=== PATIENT | female | born 1960 | race Caucasian/White ===

== ENCOUNTER 2024-02-01 11:24 | Emergency (ER) | payer SELFPAY ==
[~2024-02-01] VITALS: Ht 154.9 cm; Wt 66.9 kg
[2024-02-01 11:32] VITALS: BP 12/86; PULSE 75; RESP 18; O2SAT 5
[2024-02-01 12:00] LABS: Basophils # (auto) 0.1 10 ^3/uL (0-0.2); Basophils % (auto) 0.6 % (0.0-2.0); Eosinophils # (auto) 0.4 10 ^3/uL (0-0.8); Eosinophils % (auto) 3.3 % (0.0-7.0); Hematocrit 47.2 % (36.0-46.0); Hemoglobin 15.7 g/dL (12.2-16.2); Lymphocytes # (auto) 3.7 10 ^3/uL (0.4-5.4); Lymphocytes % (auto) 26.9 % (10.0-50.0); Mean Corpuscular Hemoglobin 30.1 pg (28.0-32.0); Mean Corpuscular Hgb Conc. 33.2 g/dL (32.0-36.0); Mean Corpuscular Volume 90.8 fL (80.0-100.0); Monocytes # (auto) 0.9 10 ^3/uL (0-1.3); Monocytes % (auto) 6.4 % (0.0-12.0); Neutrophils # (auto) 8.5 10 ^3/uL (1.6-8.6); Neutrophils % (auto) 62.8 % (37.0-80.0); Nucleated Red Blood Cells % 0.2 %; Red Cell Distribution Width 15.3 % (11.8-14.3); White Blood Cell 13.6 10^3/uL (4.4-10.8)
[2024-02-01 12:17] LABS: Alanine Aminotransferase 20 U/L (7-40); Albumin 4.4 g/dL (3.2-4.8); Alkaline Phosphatase 110 U/L (46-116); Anion Gap 5 (5-15); Aspartate Aminotransferase 17 U/L (13-40); BUN/Creatinine Ratio 15.7 (10.0-20.0); Blood Urea Nitrogen 11 mg/dL (9-23); CRP High Sensitivity 0.49 mg/dL (<1.0); Calcium 9.5 mg/dL (8.5-10.1); Carbon Dioxide 26 mmol/L (20-30); Chloride 106 mmol/L (98-107); Glucose 84 mg/dL (74-106); Potassium 4.3 mmol/L (3.5-5.1); Sodium 137 mmol/L (136-145)
[2024-02-01 12:18] LABS: Bilirubin, Total 0.3 mg/dL (0.2-1.0); Total Protein 6.9 g/dL (5.7-8.2)
[2024-02-01 12:58] LABS: Erythrocyte Sedimentation Rate 2 mm/hr (0-20)
[2024-02-01 13:14] LABS: INR 2.12 (0.9-1.15); Prothrombin Time 21.2 sec (9.3-11.8)
== END 2024-02-01 23:37 | disposition home or self-care (01) ==
LOC: ER 11:24
DX: M25.561 Pain in right knee (principal); I10 Essential (primary) hypertension; Z98.890 Other specified postprocedural states; Z87.891 Personal history of nicotine dependence; Z79.899 Other long term (current) drug therapy
CPT/HCPCS: 36415; 80053; 83605; 83880; 85025; 85610; 85652; 86141; 93971

== ENCOUNTER 2024-07-03 14:05 | Emergency (ER) | payer OTHER, SELFPAY ==
[~2024-07-03] VITALS: Ht 157.5 cm; Wt 65.7 kg
[2024-07-03 16:39] VITALS: BP 101/68; PULSE 75; RESP 16; TEMP 97.7; O2SAT 95
== END 2024-07-03 16:57 | disposition home or self-care (01) ==
LOC: ER 14:05
DX: T16.2XXA Foreign body in left ear, initial encounter (principal); W44.8XXA Other foreign body entering into or through a natural orifice, initial encounter; Y93.89 Activity, other specified; Y92.89 Other specified places as the place of occurrence of the external cause; Y99.8 Other external cause status

== ENCOUNTER 2024-09-29 17:31 | Inpatient (IN) | payer SELFPAY ==
[~2024-09-29] VITALS: Ht 162.6 cm; Wt 67.7 kg
--- NOTE | 2024-09-29 17:52 | ED.PDOC ---
SOB-HPI HPI Comments 64 y.o female with PMH Of HTN and CVA, presents to the ED via EMS for a chief complaint of SOB associated with left sided chest heaviness, a productive cough and chills that started 3-4 day ago. Patient reports SOB worsened today, drove to the fire station for help and 911 was called from there. Patient's SPO2 read 100% on room air on scene and en route. Patient mentions daughter and son in law are both sick at home with flu like symptoms. No other symptoms or pain reported at this time. 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: No Pertinent WEATHERSEAL TECHNICIAN History Family History Family History: Reviewed,noncontributory to illness Social History Smoker: Non-Smoker Alcohol: Occasionally Drugs: Marijuana Lives In: Home Constitutional: reports: chills; denies: diaphoresis, fatigue, fever, malaise, sweats, weakness, others EENTM: denies: blurred vision, double vision, ear bleeding, ear discharge, ear drainage, ear pain, ear ringing, eye pain, eye redness, hearing loss, mouth pain, mouth swelling, nasal discharge, nose bleeding, nose congestion, nose pain, photophobia, tearing, throat pain, throat swelling, voice changes, others Respiratory: reports: cough, SOB at rest, shortness of breath, SOB with excertion; denies: hemoptysis, orthopnea, stridor, wheezing, others Cardiovascular: reports: chest pain; denies: dizzy spells, diaphoresis, Dyspnea on exertion, edema, irregular heart beat, left arm pain, lightheadedness, palpitations, PND, syncope, others Gastrointestinal: denies: abdomen distended, abdominal pain, blood streaked bowels, constipated, diarrhea, dysphagia, difficulty swallowing, hematemesis, melena, nausea, poor appetite, poor fluid intake, rectal bleeding, rectal pain, vomiting, others Genitourinary: denies: abnormal vagina bleeding, burning, dyspareunia, dysuria, flank pain, frequency, hematuria, incontinence, pain, , vagina d ischarge, urgency, others Neurological: denies: dizziness, fainting, headache, left sided numbness, left sided weakness, numbness, paresthesia, pre-existing deficit, right sided numbness, right sided weakness, seizure, speech problems, tingling, tremors, weakness, others Musculoskeletal: denies: back pain, gout, joint pain, joint swelling, muscle pain, muscle stiffness, neck pain, others Integumetry: denies: bruises, change in color, change in hair/nails, dryness, laceration, lesions, lumps, rash, wounds, others Allergic/Immunocompromised: denies: Difficulty Healing, Frequent Infections, Hives, Itching, others Hematologic/Lymphatic: denies: anemia, blood clots, easy bleeding, easy bruising, swollen glands, others Endocrine: denies: excessive hunger, excessive sweating, excessive thirst, excessive urination, flushing, intolerance to cold, intolerance to heat, unexplained weight gain, unexplained weight loss, others Psychiatric: denies: anxiety, bipolar disorder, depression, hopeless, panic disorder, schizophrenia, sleepless, suicidal, others All Other Systems: Reviewed and Negative Physical Exam General Appearance: Moderate Distress HEENT: Normal ENT Inspection, Pharynx Normal, TMs Normal Neck: Full Range of Motion, Non-Tender, Normal, Normal Inspection Respiratory: Chest Non-Tender, Decreased Breath Sounds, No Accessory Muscle Use, Rales, Respiratory Distress Cardiovascular: No Edema, No JVD, No Murmur, No Gallop, Normal Peripheral Pulses, Regular Rate/Rhythm Breast Exam: Deferred Gastrointestinal: No Organomegaly, Non Tender, No Pulsatile Mass, Normal Bowel Sounds, Soft Genitalia: Deferred Pelvic: Deferred Rectal: Deferred Extremities: Decreased range of motion, No calf tenderness, Normal capillary refill, Pedal edema Musculoskeletal : Apperance: Normal Neurologic: Alert, director mobile II-XII nml as Tested, Motor Weakness, Normal Affect, Normal Mood, No Sensory Deficits Cerebellar Function: Normal Reflexes: Normal Skin: Dry, Normal Color, Warm Lymphatic: No Adenopathy EKG EKG : Pulse Rate (adult): 86 Cardiac Rhythm: NSR Hypertrophy: LAE Was a procedure done? Was a procedure done?: No Differential Dx Differential Diagnosis: Asthma, Bronchitis, Pulmonary Embolism, Respiratory Distress, URI X-Ray, Labs, Meds, VS Vital Signs Date Time Temp Pulse Resp B/P (MAP) Pulse Ox O2 Delivery O2 Flow Rate FiO2 09/29/24 18:30 98.2 89 17 115/83 (94) 100 98.2 09/29/24 18:30 83 19 97 Room Air* 0 21 09/29/24 17:52 86 09/29/24 17:37 86 09/29/24 17:35 98.2 76 20 104/64 (77) 100 Lab Test 09/29/24 18:37 Range/Units White Blood Count 7.2 4.4-10.8 10^3/uL Red Blood Count 4.61 4.0-5.20 10^6/uL Hemoglobin 14.6 12.2-16.2 g/dL Hematocrit 41.5 36.0-46.0 % Mean Corpuscular Volume 90.1 80.0-100.0 fL Mean Corpuscular Hemoglobin 31.6 28.0-32.0 pg Mean Corpuscular Hemoglobin Concent 35.1 32.0-36.0 g/dL Red Cell Distribution Width 14.0 11.8-14.3 % Platelet Count 283 140-450 10^3/uL Mean Platelet Volume 7.4 6.9-10.8 fL Neutrophils (%) (Auto) 63.1 37.0-80.0 % Lymphocytes (%) (Auto) 22.8 10.0-50.0 % Monocytes (%) (Auto) 10.7 0.0-12.0 % Eosinophils (%) (Auto) 2.5 0.0-7.0 % Basophils (%) (Auto) 0.9 0.0-2.0 % Neutrophils # (Auto) 4.5 1.6-8.6 10 ^3/uL Lymphocytes # (Auto) 1.6 0.4-5.4 10 ^3/uL Monocytes # (Auto) 0.8 0-1.3 10 ^3/uL Eosinophils # (Auto) 0.2 0-0.8 10 ^3/uL Basophils # (Auto) 0.1 0-0.2 10 ^3/uL Nucleated Red Blood Cells 0.1 % D-Dimer, Quantitative Pending Sodium Level 139 136-145 mmol/L Potassium Level 3.5 3.5-5.1 mmol/L Chloride Level 109 H 98-107 mmol/L Carbon Dioxide Level 23 20-31 mmol/L Anion Gap 7 5-15 Blood Urea Nitrogen 12 9-23 mg/dL Creatinine 0.76 0.550-1.02 mg/dL Glomerular Filtration Rate Calc 89 >90 mL/min BUN/Creatinine Ratio 15.8 10.0-20.0 Serum Glucose 104 74-106 mg/dL Calcium Level 9.1 8.7-10.4 mg/dL Troponin I High Sensitivity 4 </=34 ng/L B-Type Natriuretic Peptide 20.86 0-100 pg/mL The chest x-ray shows: IMPRESSION: Mild pulmonary vascular congestion. The patient was given Lasix 40 mg IV push The CBC and chemistry panel is within normal limits At this time, the patient was being admitted to the hospitalist Images Reviewed?: Images reviewed and evaluated by me Time of 1ST Reevaluation: 17:49 Reevaluation 1ST: Unchanged Patient Education/Counseling: Diagnosis, Treatment, Prognosis Family Education/Counseling: No Family Present Departure 1 Departure Time of Disposition: 19:17 Impression: Primary Impression: Acute on chronic diastolic (congestive) heart failure Disposition: 09 ADMITTED INPATIENT Admit to: Tele Condition: Fair Critical Care Note Critical Care Time?: Yes (35 min-critical care time only) Stability Stability form required: Yes Unstable for transfer: Telemetry monitoring (Telemetry monitoring required), ED Physician Assesment (Clinical assesment) I personally scribed for WESTLEY RODRIGUEZ MD ([email or web address]) on 09/29/24 at 17:52. Electronically submitted by Peggy Atkins ([facility]). WESTLEY RODRIGUEZ MD Sep 29, 2024 17:52
--- NOTE | 2024-09-29 18:18 | DVH ---
CHEST RADIOGRAPH Indication:sob Technique: Single frontal view of the chest was obtained Comparison: None FINDINGS: Lines and Tubes: None Lungs: No focal consolidation. Mild interstitial prominence. Pleura: No effusion. No pneumothorax. Cardiomediastinal contours: Unremarkable Bones: No acute osseous abnormality. Midline sternotomy wires are noted with fracture of the superior wires. IMPRESSION: Mild pulmonary vascular congestion.
[2024-09-29 18:30] VITALS: PULSE 83; RESP 19; O2SAT 97
--- NOTE | 2024-09-29 18:37 | ECG ---
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
[2024-09-29 18:53] LABS: Basophils # (auto) 0.1 10 ^3/uL (0-0.2); Basophils % (auto) 0.9 % (0.0-2.0); Eosinophils # (auto) 0.2 10 ^3/uL (0-0.8); Eosinophils % (auto) 2.5 % (0.0-7.0); Hematocrit 41.5 % (36.0-46.0); Hemoglobin 14.6 g/dL (12.2-16.2); Lymphocytes # (auto) 1.6 10 ^3/uL (0.4-5.4); Lymphocytes % (auto) 22.8 % (10.0-50.0); Mean Corpuscular Hemoglobin 31.6 pg (28.0-32.0); Mean Corpuscular Hgb Conc. 35.1 g/dL (32.0-36.0); Mean Corpuscular Volume 90.1 fL (80.0-100.0); Monocytes # (auto) 0.8 10 ^3/uL (0-1.3); Monocytes % (auto) 10.7 % (0.0-12.0); Neutrophils # (auto) 4.5 10 ^3/uL (1.6-8.6); Neutrophils % (auto) 63.1 % (37.0-80.0); Nucleated Red Blood Cells % 0.1 %; Platelet Count (auto) 283 10^3/uL (140-450); Red Blood Cells 4.61 10^6/uL (4.0-5.20); White Blood Cell 7.2 10^3/uL (4.4-10.8)
[2024-09-29 19:07] LABS: Chloride 109 mmol/L (98-107); Potassium 3.5 mmol/L (3.5-5.1); Sodium 139 mmol/L (136-145)
[2024-09-29 19:08] LABS: Anion Gap 7 (5-15); Calcium 9.1 mg/dL (8.7-10.4); Carbon Dioxide 23 mmol/L (20-31)
[2024-09-29 19:13] LABS: BUN/Creatinine Ratio 15.8 (10.0-20.0); Blood Urea Nitrogen 12 mg/dL (9-23); Glucose 104 mg/dL (74-106)
[2024-09-29 19:44] VITALS: PULSE 72; RESP 19; O2SAT 91
[2024-09-29] MEDS: FUROSEMIDE 40 MG/4 ML VIAL IV ONE (19:53)
[2024-09-29] MEDS ORDERED: ONDANSETRON HCL 4 MG/2 ML VIAL IV PRN (20:30)
[2024-09-29] MEDS ORDERED: ACETAMINOPHEN 325 MG TAB PO PRN (20:30)
[2024-09-29] MEDS ORDERED: MORPHINE SULFATE INJ 2 MG/ml SYRG IV PRN ×2 (20:30)
[2024-09-29] MEDS ORDERED: NITROGLYCERIN 0.4 MG SL TAB SL PRN (20:30)
[2024-09-29 21:23] LABS: Alanine Aminotransferase 18 U/L (7-40); Albumin 4.1 g/dL (3.2-4.8); Alkaline Phosphatase 86 U/L (46-116); Anion Gap 8 (5-15); Aspartate Aminotransferase 15 U/L (13-40); BUN/Creatinine Ratio 16.2 (10.0-20.0); Bilirubin, Total 0.3 mg/dL (0.2-1.0); Blood Urea Nitrogen 12 mg/dL (9-23); Calcium 9.2 mg/dL (8.7-10.4); Carbon Dioxide 24 mmol/L (20-31); Chloride 108 mmol/L (98-107); Glucose 100 mg/dL (74-106); Potassium 3.2 mmol/L (3.5-5.1); Sodium 140 mmol/L (136-145); Total Protein 6.7 g/dL (5.7-8.2)
--- NOTE | 2024-09-29 21:44 | DVH ---
US BiLat Lower DVT HISTORY: Pain COMPARISON: US RT LOWER DVT on DOS: 02/01/24 TECHNIQUE: Duplex Doppler evaluation of the deep venous system of the lower extremity from the common femoral veins, superficial femoral vein, great saphenous vein, deep femoral vein, popliteal vein, an d calf veins, including color Doppler and spectral/pulsed waveform analysis, was performed. FINDINGS: Right: - Common femoral vein: Compressible - Deep femoral vein: Compressible - Femoral vein: Compressible - Popliteal vein: Compressible - Posterior tibial vein: Waveforms present - Peroneal vein: Waveforms present - Other: Nothing Left: - Common femoral vein: Compressible - Deep femoral vein: Compressible - Femoral vein: Compressible - Popliteal vein: Compressible - Posterior tibial vein: Waveforms present - Peroneal vein: Waveforms present - Other: Nothing IMPRESSION: No right or left lower extremity deep venous thrombosis.
--- NOTE | 2024-09-29 21:44 | DVH ---
EXAMINATIONS: 2 views of the right knee 2 views of the left knee CLINICAL HISTORY: Severe pain Bursitis COMPARISON: None Findings and impression: Oblique views not provided. No grossly displaced fractures, dislocations or bony destructive changes are evident on the provided views. If there is persistent clinical concern, follow-up MRI may be obtained to further evaluate.
[2024-09-29] MEDS: SODIUM CHLOR 0.9% PF (SALINE LOCK) 10ML VIAL/SYR IV SCH (21:47)
[2024-09-29] MEDS: ENOXAPARIN SOD 40 MG/0.4 ML SYRINGE SC SCH (21:48)
--- NOTE | 2024-09-29 22:14 | DVHHPRES ---
History of Present Illness Resident Creating Document: CAROLIN ARELLANO RESIDENT History of Present Illness NEREIDA MO is 64 years old female with a PMH of HTN, CVA, prosthetic aortic valve replacement presented to the ED with the chief complaints of shortness of breaths since two days. Patient reported she has been having intermittent shortness of breaths for a while, but since past 2 days patient has been having more SOB associated with cough, mild intermittent substernal chest pain which is nonradiating and weakness and pain behind the both knee joints in legs unable to bear weight when spirometer to visit the ED. on mass has been patient denies fever, nausea, vomiting, diarrhea, diaphoresis, dizziness, palpitations, headache and other associated symptoms. Past Medical History HTN, CVA, Past Surgical History prosthetic aortic valve replacement three and half years ago Family History: None Past Social History Lives with a daughter. Former smoker stopped six months ago. Marijuana abuser once in a while but denies alcohol abuse Review of Systems Constitutional: No: Fever, Chills, Sweats, Weakness, Malaise, Other Eyes: No: Pain, Vision change, Conjunctivae inflammation, Eyelid inflammation, Other, Redness ENT: No: Ear pain, Ear discharge, Nose pain, Nose discharge, Nose congestion, Mouth pain, Mouth swelling, Throat pain, Throat swelling, Other Respiratory: Cough, Shortness of breath Cardiovascular: Chest Pain Gastrointestinal: No: Nausea, Vomiting, Abdominal Pain, Diarrhea, Constipation, Melena, Hematochezia, Other Genitourinary: No Dysuria, No Frequency, No Incontinence, No Hematuria, No Retention, No Other Musculoskeletal: No: other, neck pain, shoulder pain, arm pain, back pain, hand pain, leg pain, foot pain Skin: No: Rash, Lesions, Jaundice, Bruising, Other Neurological: No: Weakness, Numbness, Incoordination, Change in speech, Confusion, Seizures, Other Allergies: Coded Allergies: No Known Drug Allergy (Verified Allergy, Unknown, 02/01/24) Medications Current Medications Medications Dose Ordered Sig/[place] Route Start Time Stop Time Status Last Admin Dose Admin Sodium Chloride 10 ml Q8HR IV 09/29/24 22:00 09/29/24 21:47 10 ML Ondansetron HCl 4 mg Q4HP PRN IV 09/29/24 20:30 Acetaminophen 650 mg Q6HP PRN PO 09/29/24 20:30 Morphine Sulfate 2 mg Q4HPRN PRN IV 09/29/24 20:30 Enoxaparin Sodium 40 mg DAILY SC 09/29/24 20:30 09/29/24 21:48 40 MG Nitroglycerin 0.4 mg Q5MINP PRN SL 09/29/24 20:30 Morphine Sulfate 2 mg Q30M PRN IV 09/29/24 20:30 Exam Vital Signs Vital Signs Date Time Temp Pulse Resp B/P (MAP) Pulse Ox O2 Delivery O2 Flow Rate FiO2 09/29/24 22:01 77 09/29/24 20:44 98.7 19 108/60 (76) 96 98.7 09/29/24 19:44 Room Air* 0 21 Exam Pt is lying on bed General Appearance: Alert, Oriented X3, Cooperative, moderate distress HEENT: Atraumatic, Mucous membranes moist/pink Respiratory: Clear to auscultation, Normal air movement, No added sounds Cardiovascular: Regular rate, Normal S1, Normal S2, No murmurs Abdominal: Active bowel sounds, Soft, no distention, no tenderness Extremities: 1+ edema, behind the knees tenderness, Normal pulses, Skin: No Significant rash, except past surgical scars Neuro: Normal speech, sensorimotor deficits none Psych/Mental Status: Mental status NL, Mood NL Nurse was there as sharperone during examination Labs/Xrays Labs Test 09/29/24 19:27 09/29/24 18:37 Range/Units Sodium Level 140 136-145 mmol/L Potassium Level 3.2 L 3.5-5.1 mmol/L Chloride Level 108 H 98-107 mmol/L Carbon Dioxide Level 24 20-31 mmol/L Anion Gap 8 5-15 Blood Urea Nitrogen 12 9-23 mg/dL Creatinine 0.74 0.550-1.02 mg/dL Glomerular Filtration Rate Calc 91 >90 mL/min BUN/Creatinine Ratio 16.2 10.0-20.0 Serum Glucose 100 74-106 mg/dL Calcium Level 9.2 8.7-10.4 mg/dL Total Bilirubin 0.3 0.2-1.0 mg/dL Aspartate Amino Transferase (AST) 15 13-40 U/L Alanine Aminotransferase (ALT) 18 7-40 U/L Alkaline Phosphatase 86 46-116 U/L Troponin I High Sensitivity 4 </=34 ng/L Total Protein 6.7 5.7-8.2 g/dL Albumin 4.1 3.2-4.8 g/dL White Blood Count 7.2 4.4-10.8 10^3/uL Red Blood Count 4.61 4.0-5.20 10^6/uL Hemoglobin 14.6 12.2-16.2 g/dL Hematocrit 41.5 36.0-46.0 % Mean Corpuscular Volume 90.1 80.0-100.0 fL Mean Corpuscular Hemoglobin 31.6 28.0-32.0 pg Mean Corpuscular Hemoglobin Concent 35.1 32.0-36.0 g/dL Red Cell Distribution Width 14.0 11.8-14.3 % Platelet Count 283 140-450 10^3/uL Mean Platelet Volume 7.4 6.9-10.8 fL Neutrophils (%) (Auto) 63.1 37.0-80.0 % Lymphocytes (%) (Auto) 22.8 10.0-50.0 % Monocytes (%) (Auto) 10.7 0.0-12.0 % Eosinophils (%) (Auto) 2.5 0.0-7.0 % Basophils (%) (Auto) 0.9 0.0-2.0 % Neutrophils # (Auto) 4.5 1.6-8.6 10 ^3/uL Lymphocytes # (Auto) 1.6 0.4-5.4 10 ^3/uL Monocytes # (Auto) 0.8 0-1.3 10 ^3/uL Eosinophils # (Auto) 0.2 0-0.8 10 ^3/uL Basophils # (Auto) 0.1 0-0.2 10 ^3/uL Nucleated Red Blood Cells 0.1 % D-Dimer, Quantitative < 0.19 0.0-0.49 mg/L FEU B-Type Natriuretic Peptide 20.86 0-100 pg/mL Assessment/Plan Assessment/Plan # ? Acute vs chronic systolic vs diastolic CHF -BNP normal -troponins were negative -ordered echocardiogram -CXR showing pulmonary vascular congestion -currently on Lasix 40 mg IV # Hypokalemia - Repleting - Monitor lab # marijuana abuse disorder - counseled regarding cessation for more than 17 minutes Lovenox for now No gi ppx Cardiac diet for now Discussed with the patient for more than 27 minutes: Full code status Case management discussed with Dr. Kulkarni, patient and nurse Plan discussed with: Patient My Orders Orders - CAROLIN ARELLANO RESIDENT Procedure Category Date Status Time Admit ADMIT 09/29/24 Transmitted 20:27 Allergies ANDREI 09/29/24 In Process 20:27 Code Status CODE 09/29/24 Transmitted 20:27 2 Gm Sodium Diet DIET 09/30/24 Transmitted Breakfast Sodium Chloride Lock PHA 09/29/24 In Process (Saline Lock Ns) 22:00 Ondansetron Hcl PHA 09/29/24 In Process (Zofran) 20:30 Complete Blood Count LAB 09/30/24 Verified 04:00 Comprehensive LAB 09/30/24 Verified Metabolic Panel 04:00 Cardiac DIET 09/30/24 Transmitted Diet-2gna,Lofat,Lochol Breakfast Echo 2d Mode Cardiac US 09/29/24 Logged DOP 20:27 Acetaminophen Tablet PHA 09/29/24 In Process (Tylenol Tablet) 20:30 Morphine Sulfate PHA 09/29/24 In Process Injection 20:30 Enoxaparin Sodium PHA 09/29/24 In Process (Lovenox) 20:30 Nitroglycerin PHA 09/29/24 In Process Sublingual (Ntrostat 20:30 Morphine Sulfate PHA 09/29/24 In Process Injection 20:30 Oxygen By Nasal RT 09/29/24 Transmitted Cannula 20:27 Stat Ekg For Chest ANDREI 09/29/24 In Process Pain 20:27 Notify Of Changes ANDREI 09/29/24 In Process From Base 20:27 Inspector Aligning For ANDREI 09/29/24 In Process 24 Hours 20:27 Emergency Dysrhythmia ANDREI 09/29/24 In Process Protocol 20:27 Rhythm Strips Once ANDREI 09/29/24 In Process Every Shift 20:27 Drug Screen LAB 09/29/24 Logged 20:27 L Knee 2v Xray XY 09/29/24 Resulted 21:03 R Knee 2v Xray XY 09/29/24 Resulted 21:03 Bilat Lower Dvt US 09/29/24 Resulted 21:03 PTPTT LAB 09/29/24 In Process 21:50 Hemoglobin A1c LAB 09/29/24 In Process 21:50 Vitamin D, 25-Hydroxy LAB 09/29/24 In Process 21:50 Vitamin B12 LAB 09/29/24 In Process 21:50 Thyroid Stimulating LAB 09/29/24 In Process Hormone 21:50 Stool Occult Blood LAB 09/29/24 Logged 21:50 CAROLIN ARELLANO RESIDENT Sep 29, 2024 22:14
[2024-09-29 22:17] LABS: INR 2.98 (0.9-1.15); Partial Thromboplastin Time 45.6 SEC (24.5-34.5); Prothrombin Time 29.1 sec (9.3-11.8)
[2024-09-29 23:19] VITALS: BP 117/60; PULSE 92; RESP 18; TEMP 98.5; O2SAT 96
[2024-09-29 23:20] VITALS: BP 126/78; PULSE 93; RESP 19; TEMP 98.5; O2SAT 98
[2024-09-29 23:29] LABS: COVID19 ANTIGEN SOFIA FIA NEGATIVE (NEGATIVE); Rapid Influenza A Negative (Negative); Rapid Influenza B Negative (Negative)
[2024-09-29] MEDS: POTASSIUM EFFERVESENT TAB 25 MEQ PO ONE (23:39)
[2024-09-30 01:00] VITALS: BP 126/78; PULSE 93; RESP 19; TEMP 98.5; O2SAT 97
[2024-09-30] MEDS ORDERED: METO25TA93 PO (01:10)
[2024-09-30] MEDS ORDERED: ASPI1TAB20 PO (01:10)
[2024-09-30] MEDS ORDERED: WARF-111 PO (01:10)
[2024-09-30 05:00] VITALS: BP 114/72; PULSE 88; RESP 19; TEMP 98.5; O2SAT 97
[2024-09-30 06:30] LABS: Basophils # (auto) 0 10 ^3/uL (0-0.2); Basophils % (auto) 0.8 % (0.0-2.0); Eosinophils # (auto) 0.2 10 ^3/uL (0-0.8); Eosinophils % (auto) 2.9 % (0.0-7.0); Hematocrit 46.5 % (36.0-46.0); Hemoglobin 15.8 g/dL (12.2-16.2); Lymphocytes # (auto) 1.4 10 ^3/uL (0.4-5.4); Lymphocytes % (auto) 24.8 % (10.0-50.0); Mean Corpuscular Hemoglobin 30.9 pg (28.0-32.0); Mean Corpuscular Volume 90.8 fL (80.0-100.0); Monocytes # (auto) 0.8 10 ^3/uL (0-1.3); Monocytes % (auto) 13.6 % (0.0-12.0); Neutrophils # (auto) 3.4 10 ^3/uL (1.6-8.6); Neutrophils % (auto) 57.9 % (37.0-80.0); Nucleated Red Blood Cells % 0.1 %; Platelet Count (auto) 291 10^3/uL (140-450); Red Blood Cells 5.12 10^6/uL (4.0-5.20); Red Cell Distribution Width 14.6 % (11.8-14.3); White Blood Cell 5.8 10^3/uL (4.4-10.8)
[2024-09-30 06:47] LABS: Alanine Aminotransferase 18 U/L (7-40); Albumin 4.4 g/dL (3.2-4.8); Alkaline Phosphatase 88 U/L (46-116); Anion Gap 7 (5-15); Aspartate Aminotransferase 17 U/L (13-40); BUN/Creatinine Ratio 11.1 (10.0-20.0); Bilirubin, Total 0.4 mg/dL (0.2-1.0); Blood Urea Nitrogen 9 mg/dL (9-23); Calcium 9.3 mg/dL (8.7-10.4); Carbon Dioxide 25 mmol/L (20-31); Chloride 106 mmol/L (98-107); Glucose 95 mg/dL (74-106); Potassium 3.7 mmol/L (3.5-5.1); Sodium 138 mmol/L (136-145)
[2024-09-30 06:48] LABS: Total Protein 6.9 g/dL (5.7-8.2)
--- NOTE | 2024-09-30 07:21 | DVHPNRES ---
Progress Note Objective vital signs Vital Sign Date Time Temp Pulse Resp B/P (MAP) Pulse Ox O2 Delivery O2 Flow Rate FiO2 09/30/24 05:00 98.5 88 19 114/72 (86) 97 98.5 09/29/24 23:20 Room Air* 0 21 Total Intake and Output 09/29/24 09/29/24 09/30/24 15:00 23:00 07:00 Intake Total 240 ml Balance 240 ml medications Current Medications Medications Dose Ordered Sig/[place] Route Start Time Stop Time Status Last Admin Dose Admin Sodium Chloride 10 ml Q8HR IV 09/29/24 22:00 09/30/24 06:01 10 ML Ondansetron HCl 4 mg Q4HP PRN IV 09/29/24 20:30 Acetaminophen 650 mg Q6HP PRN PO 09/29/24 20:30 Morphine Sulfate 2 mg Q4HPRN PRN IV 09/29/24 20:30 Enoxaparin Sodium 40 mg DAILY SC 09/29/24 20:30 09/29/24 21:48 40 MG Nitroglycerin 0.4 mg Q5MINP PRN SL 09/29/24 20:30 Morphine Sulfate 2 mg Q30M PRN IV 09/29/24 20:30 Furosemide 40 mg DAILY IV 09/30/24 10:00 Warfarin Sodium RX PROTOCOL PER PHARMACY PO 09/29/24 23:30 UNV laboratory and microbiology Laboratory Tests 09/30/24 05:37 Test 09/30/24 05:37 Range/Units Serum Glucose 95 74-106 mg/dL VERENA NAVAS RESIDENT Sep 30, 2024 07:21
[2024-09-30 08:00] VITALS: PULSE 89
[2024-09-30 08:55] VITALS: BP 114/75; PULSE 96; RESP 16; TEMP 98; O2SAT 100
[2024-09-30 09:33] LABS: INR 2.7 (0.9-1.15); Partial Thromboplastin Time 46.4 SEC (24.5-34.5); Prothrombin Time 26.6 sec (9.3-11.8)
[2024-09-30] MEDS: FUROSEMIDE 40 MG/4 ML VIAL IV SCH (10:55)
[2024-09-30] MEDS ORDERED: ACET120S38 PR (11:38)
--- NOTE | 2024-09-30 12:19 | DVHDSRES ---
Discharge Summary Date of Admission Resident Creating Document: VERENA NAVAS RESIDENT Sep 29, 2024 at 20:27 Date of Discharge: Sep 30, 2024 Admitting Diagnosis Left knee pain Labs/Diagnostic Data: Laboratory Results Test 09/30/24 08:32 09/30/24 05:37 09/29/24 22:20 09/29/24 19:27 Prothrombin Time 26.6 sec (9.3-11.8) Prothrombin Time INR 2.70 (0.9-1.15) Activated Partial Thromboplast Time 46.4 SEC (24.5-34.5) White Blood Count 5.8 10^3/uL (4.4-10.8) Red Blood Count 5.12 10^6/uL (4.0-5.20) Hemoglobin 15.8 g/dL (12.2-16.2) Hematocrit 46.5 % (36.0-46.0) Mean Corpuscular Volume 90.8 fL (80.0-100.0) Mean Corpuscular Hemoglobin 30.9 pg (28.0-32.0) Mean Corpuscular Hemoglobin Concent 34.0 g/dL (32.0-36.0) Red Cell Distribution Width 14.6 % (11.8-14.3) Platelet Count 291 10^3/uL (140-450) Mean Platelet Volume 7.8 fL (6.9-10.8) Neutrophils (%) (Auto) 57.9 % (37.0-80.0) Lymphocytes (%) (Auto) 24.8 % (10.0-50.0) Monocytes (%) (Auto) 13.6 % (0.0-12.0) Eosinophils (%) (Auto) 2.9 % (0.0-7.0) Basophils (%) (Auto) 0.8 % (0.0-2.0) Neutrophils # (Auto) 3.4 10 ^3/uL (1.6-8.6) Lymphocytes # (Auto) 1.4 10 ^3/uL (0.4-5.4) Monocytes # (Auto) 0.8 10 ^3/uL (0-1.3) Eosinophils # (Auto) 0.2 10 ^3/uL (0-0.8) Basophils # (Auto) 0 10 ^3/uL (0-0.2) Nucleated Red Blood Cells 0.1 % Sodium Level 138 mmol/L (136-145) Potassium Level 3.7 mmol/L (3.5-5.1) Chloride Level 106 mmol/L (98-107) Carbon Dioxide Level 25 mmol/L (20-31) Anion Gap 7 (5-15) Blood Urea Nitrogen 9 mg/dL (9-23) Creatinine 0.81 mg/dL (0.550-1.02) Glomerular Filtration Rate Calc 82 mL/min (>90) BUN/Creatinine Ratio 11.1 (10.0-20.0) Serum Glucose 95 mg/dL (74-106) Calcium Level 9.3 mg/dL (8.7-10.4) Magnesium Level 2.1 mg/dL (1.6-2.6) Total Bilirubin 0.4 mg/dL (0.2-1.0) Aspartate Amino Transferase (AST) 17 U/L (13-40) Alanine Aminotransferase (ALT) 18 U/L (7-40) Alkaline Phosphatase 88 U/L (46-116) Total Protein 6.9 g/dL (5.7-8.2) Albumin 4.4 g/dL (3.2-4.8) Influenza Type A Antigen Negative (Negative) Influenza Type B Antigen Negative (Negative) SARS-CoV-2 Antigen (Rapid) Negative (NEGATIVE) Troponin I High Sensitivity 4 ng/L (</=34) Thyroid Stimulating Hormone (TSH) 1.49 uIU/mL (0.55-4.78) Test 09/29/24 18:37 D-Dimer, Quantitative < 0.19 mg/L FEU (0.0-0.49) Hemoglobin A1c 5.5 % A1C (<5.7) B-Type Natriuretic Peptide 20.86 pg/mL (0-100) Vitamin B12 Level 616 pg/mL (211-911) Vitamin D 25-Hydroxy 31.3 ng/mL (30.0-100) Other Laboratory Tests 09/30/24 05:37 Brief Hx & Hospital Course: Amara Foote is 64 years old female with a PMH of HTN, CVA, prosthetic aortic valve replacement presented to the ED with the chief complaints of shortness of breaths since two days. Patient reported she has been having intermittent shortness of breaths for a while, but since past 2 days patient has been having more SOB associated with cough, mild intermittent substernal chest pain which is nonradiating and weakness and pain behind the both knee joints in legs unable to bear weight when spirometer to visit the ED. on mass has been patient denies fever, nausea, vomiting, diarrhea, diaphoresis, dizziness, palpitations, headache and other associated symptoms. During the hospital workup, right and left which showed No grossly displaced fractures, dislocations or bony destructive changes are evident on the provided views. Lower extremity Doppler was not remarkable for left or right DVT. Patient was diagnosed with probable osteoarthritis of the knee joints and was recommended outpatient orthopedic follow up. Given the history of aortic valve replacement, patient was continued on warfarin during the hospital stay. INR was completed which was 2.98 on admission. Patient also reported shortness of breath, orthopnea, paroxysmal nocturnal dyspnea, BNP and troponin level were completed which were within normal limits. EKG was completed which showed normal sinus rhythm with minimal nonspecific changes in lateral leads. Telemetry was reviewed which showed normal sinus rhythm in the rate was in 70s. No events were recorded. Consequently an echocardiogram was completed which showed Normal left ventricular size and dimension. Normal left ventricular systolic function estimated ejection fraction 55%. There is a grade 1 diastolic dysfunction. Normal right ventricular size and dimension. Normal right ventricular systolic function. Therefore patient had low likelihood of congestive heart failure. Laboratory workup revealed mild hypokalemia with on admission which was corrected. Magnesium was within normal limits. 09/30/2024-patient is hemodynamically stable, clinically stable and is therefore discharged home with the recommendation to follow up with Orthopedics as outpatient and follow up with the primary care physician within 7-14 days. She is advised to take continue her home medication which included aspirin, metoprolol 25 mg daily, warfarin 3 mg daily. Operations or Procedures ORDERING PHYSICIAN: CAROLIN ARELLANO RESIDENT PROCEDURE(s): RKNE2 - R KNEE 2V XRAY REASON: Severe pain? Bursitis ORDER NUMBER(s): [id number], ACCESSION NUMBER(s): [id number] EXAMINATIONS: 2 views of the right knee 2 views of the left knee CLINICAL HISTORY: Severe pain Bursitis COMPARISON: None Findings and impression: Oblique views not provided. No grossly displaced fractures, dislocations or bony destructive changes are evident on the provided views. If there is persistent clinical concern, follow-up MRI may be obtained to further evaluate. ATED BY: SUNG HILTON MD DICTATED DATE/TIME: 09/29/242140 SIGNED BY: SUNG HILTON MD SIGNED DATE/TIME: 09/29/242140 CC: ORDERING PHYSICIAN: CAROLIN ARELLANO PROCEDURE(s): LKNE2 - L KNEE 2V XRAY REASON: severe pain ? bursistis ORDER NUMBER(s): [id number], ACCESSION NUMBER(s): [id number] EXAMINATIONS: 2 views of the right knee 2 views of the left knee CLINICAL HISTORY: Severe pain Bursitis COMPARISON: None Findings and impression: Oblique views not provided. No grossly displaced fractures, dislocations or bony destructive changes are evident on the provided views. If there is persistent clinical concern, follow-up MRI may be obtained to further evaluate. ATED BY: SUNG HILTON MD DICTATED DATE/TIME: 09/29/242140 SIGNED BY: SUNG HILTON MD SIGNED DATE/TIME: 09/29/242140 CC: ORDERING PHYSICIAN: CAROLIN ARELLANO PROCEDURE(s): BLDVT - BiLat Lower DVT REASON: Pain ORDER NUMBER(s): [id number], ACCESSION NUMBER(s): [id number] US BiLat Lower DVT HISTORY: Pain COMPARISON: US RT LOWER DVT on DOS: 02/01/24 TECHNIQUE: Duplex Doppler evaluation of the deep venous system of the lower extremity from the common femoral veins, superficial femoral vein, great saphenous vein, deep femoral vein, popliteal vein, and calf veins, including color Doppler and spectral/pulsed waveform analysis, was performed. FINDINGS: Right: - Common femoral vein: Compressible - Deep femoral vein: Compressible - Femoral vein: Compressible - Popliteal vein: Compressible - Posterior tibial vein: Waveforms present - Peroneal vein: Waveforms present - Other: Nothing Left: - Common femoral vein: Compressible - Deep femoral vein: Compressible - Femoral vein: Compressible - Popliteal vein: Compressible - Posterior tibial vein: Waveforms present - Peroneal vein: Waveforms present - Other: Nothing IMPRESSION: No right or left lower extremity deep venous thrombosis. ATED BY: ROGELIO HUNTLEY MD DICTATED DATE/TIME: 09/29/242140 SIGNED BY: ROGELIO HUNTLEY MD SIGNED DATE/TIME: 09/29/242140 CC: ORDERING PHYSICIAN: WESTLEY RODRIGUEZ MD PROCEDURE(s): CXRP - CHEST PORTABLE REASON: sob ORDER NUMBER(s): [id number], ACCESSION NUMBER(s): [id number] CHEST RADIOGRAPH Indication:sob Technique: Single frontal view of the chest was obtained Comparison: None FINDINGS: Lines and Tubes: None Lungs: No focal consolidation. Mild interstitial prominence. Pleura: No effusion. No pneumothorax. Cardiomediastinal contours: Unremarkable Bones: No acute osseous abnormality. Midline sternotomy wires are noted with fracture of the superior wires. IMPRESSION: Mild pulmonary vascular congestion. ATED BY: RADHA HEARD DO DICTATED DATE/TIME: 09/29/241814 SIGNED BY: RADHA HEARD DO SIGNED DATE/TIME: 09/29/241814 CC: Condition at Discharge: Stable Final Diagnosis/Problems List L knee pain secondary to Probable osteoarthritis Essential hypertension History of CVA 1.5 years back Low likelihood of congestive heart failure History of prosthetic AV valve replacement on warfarin Mild hypokalemia-corrected Marijuana use dependence Discharge Disposition: Home Discharge Instruct/Medications Diet: Cardiac 2g Na,low cholest Activity: Light activity Follow Up/Referral: Follow up with Primary care physician within 7-14 days Follow up with Orthopedics outpatient within 7-14 days Follow up with the discharge clinic appointment within 7-14 days Medications: Per EMR Discharge Statement: "Patient was advised to return to the ER or call 911 if any headaches, dizziness, shortness of breath, chest pain, abdominal pain, bleeding, fevers, or worsening of medical condition. Patient was counseled about treatment plan, medications, possible side effects, patientverbalized understanding. All questions were answered to the best of my ability. This discharge took greater then 30 minutes in planning, reviewing documentation, counseling the patient, and discussing with other team members." ASSESSMENT ASSESSMENT Assessment L knee pain secondary to Probable osteoarthritis Low likelihood of CHF Date of Service: Sep 30, 2024 Billing Provider: BRIAN DA SILVA MD Common Visit Codes: 96999-FOI/OBS DISCH DAY >30min VERENA NAVAS RESIDENT Sep 30, 2024 12:18 BRIAN DA SILVA MD Oct 01, 2024 16:29
[2024-09-30 13:00] VITALS: BP 115/59; PULSE 76; RESP 14; TEMP 98.3; O2SAT 98
--- NOTE | 2024-09-30 14:05 | DVHSR ---
APPROVED REPORT EXAM: Two-dimensional and M-mode echocardiogram with Doppler and color Doppler. Blood Pressure: 114/75 mmHg INDICATION CHF exacerbation Surgery/Intervention Valve Replacement: Bioprosthetic Type: AV RISK FACTORS Height: 5'4", Weight: 149 DIMENSIONS LVDd3.7 (3.8-5.7cm)LA (2D)3.0 (1.9-4.0cm)Aortic Root (2.0-3.7cm) LVDs2.5 (2.5-4.0cm)LA (MM) (1.9-4.0cm)Aortic Cusp Exc (1.5-2.0cm) EF (%) 60.0 (55-70%)Rt. Atrium3.1 (1.9-4.0cm)Asc. Aorta cm IVSd1.0 (0.7-1.1cm)RV (D) (1.8-2.4cm) PWd0.8 (0.7-1.1cm) Mitral Valve MitralMitral Stenosis E wave0.45m/sMV Mean GR.mmHg A wave0.61m/sMV Peak GR.mmHg E/A ratio0.72D MVAcm2 DECEL [id number] 1/2 Timems Aortic Valve Aortic ValveAortic Stenosis V11.16m/Hardy Mean GR.10mmHg V22.15m/Hardy Peak GR.18mmHg LVOT Diameter1.9 (1.8-2.4cm)Doppler AVA1.53cm2 Tricuspid Valve TR Velocity2.30m/s [id number] Other Information Technically limited study due to body habitus. Conclusion Normal left ventricular size and dimension. Normal left ventricular systolic function estimated ejec tion fraction 55%. There is a grade 1 diastolic dysfunction. Normal right ventricular size and dimension. Normal right ventricular systolic function. Normal biatrial size and dimension. Normal aortic valve structure and function. Normal mitral valve and function. Normal tricuspid valve structure and function. The pulmonary valve is grossly normal. No pericardial effusion.
[2024-09-30] MEDS ORDERED: METOPROLOL TARTRATE 25 MG TAB PO SCH (22:00)
[2024-10-01] MEDS ORDERED: ASPirin 81 mg TAB PO SCH (10:00)
== END 2024-09-30 16:45 | disposition home or self-care (01) | DRG 555 ==
LOC: ER 17:31 → EDUNIT# 17:31 → EDBD 17:31 → TELE 20:27 → TELE-CENTR 23:20
PROVIDERS: ATTEND Emergency Medicine
DX: M25.562 Pain in left knee (principal); I50.33 Acute on chronic diastolic (congestive) heart failure; I11.0 Hypertensive heart disease with heart failure; E87.6 Hypokalemia; F12.20 Cannabis dependence, uncomplicated; Z90.49 Acquired absence of other specified parts of digestive tract; Z95.1 Presence of aortocoronary bypass graft; Z90.710 Acquired absence of both cervix and uterus; Z86.73 Personal history of transient ischemic attack (TIA), and cerebral infarction without residual deficits; Z95.2 Presence of prosthetic heart valve
CPT/HCPCS: 36415; 71045; 73560; 80048; 80053; 82306; 82607; 83036; 83735; 83880; 84443; 84484; 85025; 85379; 85610; 85730; 87426; 87804; 93005; 93306; 93970; 99291; G0378

== ENCOUNTER 2025-06-03 18:22 | Inpatient (IN) | payer SELFPAY ==
[~2025-06-03] VITALS: Ht 152.4 cm; Wt 69.1 kg
[~2025-06-03 18:22] MED LIST: ACET120S38 PR; ASPI1TAB20 PO; METO25TA93 PO; WARF-111 PO
--- NOTE | 2025-06-03 19:26 | DVH ---
EXAM: CT HEAD WITHOUT CONTRAST INDICATION: Head injury on warfarin TECHNIQUE: CT of the head without intravenous contrast. Radiation Dose Information: CT Dose: CTDI volume is 51.07 mGy. Dose-length product is 818.84 mGy*cm The dose indicators for CT are the volume Computed Tomography (CT) Dose Index (CTDIvol) and the Dose Length Product (DLP), and are measured in units of mGy and mGy-cm, respectively. These indicators are not patient dose, but values generated from the CT scanner acquisition factors. The report includes radiation exposure data for exposures received during this examination. COMPARISON: None FINDINGS: There is no evidence of acute intracranial hemorrhage, extra-axial collection, mass effect, midline s hift, herniation or hydrocephalus. The ventricles, sulci and cisterns are age appropriate. The denson-white differentiation is intact. Patchy periventricular and subcortical white matter hypoattenuation is nonspecific but may be related to small vessel ischemic disease. The visualized paranasal sinuses and mastoid air cells are clear. Soft tissue swelling of the right temporal area. IMPRESSION: 1. No acute intracranial abnormality. 2. No displaced bony fracture. 3. No acute intracranial hemorrhage. 4. Soft tissue swelling over the right temporal region
[2025-06-03 19:30] LABS: Prothrombin Time 45.5 sec (9.3-11.8)
[2025-06-03 19:34] LABS: INR 5.04 (0.9-1.15)
--- NOTE | 2025-06-03 19:47 | ED.PDOC ---
History of Present Illness HPI Comments 64-year-old female presents with daughter for chief headache, dizziness, right eye bruising, lump to right forehead, and nausea s/p head injury. Patient reports on two and hitting a horse hitch in the right side of her head 3 days ago. She reports losing consciousness then but coming to afterwards. States on having lump to right forehead developed 1st. Right eye bruising develop the following day. Remaining symptoms are stated to develop, today. She is on warfarin and metoprolol, currently. Significant history for CVA, HTN, acidic aortic valve replacement, cholecystectomy, and marijuana dependency in addition to taking amoxicillin for recent for lip and mouth surgical procedure. Patient denies having any weakness, loss of sensation, numbness, tingling, vision loss, or further associated symptoms. Chief Complaint: Dizziness Time Seen by MD: 18:40 Primary Care Provider: NONE Reviewed Notes: Nurses Notes, Medications, Allergies Allergies: Coded Allergies: No Known Drug Allergy (Verified Allergy, Unknown, 02/01/24) Home Meds Reported Medications Acetaminophen (Acetaminophen) 120 Mg Sup, 500 MG CO Q6HP PRN for PAIN SCALE 1 THRU 6, MG 0 Refills 09/30/24 Aspirin (Aspir-81) 81 Mg Tab, 1 TAB PO DAILY, #30 TAB 5 Refills 09/30/24 Metoprolol Succinate (Metoprolol Succinate Er) 25 Mg Tab, 1 TAB PO DAILY, #30 TAB 5 Refills 09/30/24 Warfarin Sodium (Warfarin Sodium) 3 Mg Tab, 1 TAB PO DAILY, #30 TAB 5 Refills 09/30/24 Information Source: Patient, Relative (Child) Mode of Arrival: Ambulatory Severity: Moderate Timing: Days Duration: Since onset Prehospital treatment: None Review of Systems: REVIEW OF SYSTEMS: General: No fever, no chills, or fatigue HEENT: Bruising to right eye; Lump to right forehead; No sore throat, no earache, no congestion, no neck pain. Cardiac: No chest pain. No palpitations. Lungs: No shortness of breath, no cough. GI: Nausea, no vomiting, no diarrhea, no constipation, no abdominal pain : No dysuria, frequency, or urgency. No hematuria. Musculoskeletal: No joint pain , no joint swelling, no extremity edema. Skin: Lump to right forehead; No rash, no itching. Neuro: Headache, dizziness, no weakness Vital Signs Vital Signs Date Time Temp Pulse Resp B/P (MAP) Pulse Ox O2 Delivery O2 Flow Rate FiO2 06/03/25 21:46 64 20 100 Room Air 06/03/25 21:46 98.2 109/65 (80) 98.2 Physical Exam PHYSICAL EXAM: General: Awake, alert and oriented. No acute distress. Skin: Small hematoma to the right temporal forehead area; right upper eyelid ecchymosis; Skin in warm, dry and intact. Appropriate color for ethnicity. HEENT: Right upper eyelid ecchymosis; small hematoma to right temporal forehead area; The head is normocephalic. Conjunctivae are clear without exudates or hemorrhage. Sclera is non-icteric. EOM are intact. PERRLA. No signs of nystagmus. Eyelids are normal in appearance without swelling or lesions. Oral mucosa is pink and moist Neck: The neck is supple with normal range of motion. No JVD. Cardiac: Heart rate and rhythm are normal. No murmurs, gallops, or rubs are auscultated. Respiratory: No signs of respiratory distress. Lung sounds are clear in all lobes bilaterally without rales, rhonchi, or wheezes. Abdominal: Abdomen is soft, non-tender without distention, guarding or rigidity. Bowel sounds are present and normoactive in all four quadrants. Extremities: Upper and lower extremities are atraumatic in appearance without deformity or edema. Neurological: The patient is awake, alert and oriented to person, place, and time with normal speech. Speech is clear. There is no facial asymmetry. Patient has difficulty balancing on each leg, individually. Normal [id number] and heel-to-toe test. Psychiatric: Appropriate mood and affect. Good judgement and insight. Past Medical History PAST MEDICAL HISTORY: CVA, HTN Past Medical History (Other): On warfarin and metoprolol Surgical History: Cholecystectomy, Hysterectomy, Tubal Ligation Surgical History (Other): Prosthetic aortic valve replacement MEDICAL LABORATORY TECHNOLOGIST History: No Pertinent MEDICAL LABORATORY TECHNOLOGIST History Family History Family History: Reviewed,noncontributory to illness Social History Smoker: Non-Smoker Alcohol: Occasionally Drugs: Marijuana Lives In: Home Was a procedure done? Was a procedure done?: No EKG EKG : Pulse Rate (adult): 68 [place]: Normal Cardiac Rhythm: NSR Block: None Hypertrophy: None ST: Normal Differential Dx Considerations may include: DDX includes MSK trauma, facial fractures, ICH or traumatic SAH, C-spine injury, cardiac structural disease, arrhythmia, acute coronary syndrome, orthostasis, pulmonary embolism, dissection, seizure, basilar stroke, other. X-Ray, Labs, Meds, VS Vital Signs Date Time Temp Pulse Resp B/P (MAP) Pulse Ox O2 Delivery O2 Flow Rate FiO2 06/03/25 21:46 64 20 100 Room Air 06/03/25 21:46 98.2 64 20 109/65 (80) 96 98.2 06/03/25 19:47 68 06/03/25 19:06 68 06/03/25 18:39 98.2 77 17 116/74 (88) 98 98.2 Lab Test 06/03/25 18:58 06/03/25 18:38 Range/Units White Blood Count 12.4 H 4.4-10.8 10^3/uL Red Blood Count 4.17 4.0-5.20 10^6/uL Hemoglobin 12.4 12.2-16.2 g/dL Hematocrit 37.0 36.0-46.0 % Mean Corpuscular Volume 88.8 80.0-100.0 fL Mean Corpuscular Hemoglobin 29.8 28.0-32.0 pg Mean Corpuscular Hemoglobin Concent 33.6 32.0-36.0 g/dL Red Cell Distribution Width 16.1 H 11.8-14.3 % Platelet Count 471 H 140-450 10^3/uL Mean Platelet Volume 7.3 6.9-10.8 fL Neutrophils (%) (Auto) 67.3 37.0-80.0 % Lymphocytes (%) (Auto) 19.0 10.0-50.0 % Monocytes (%) (Auto) 6.8 0.0-12.0 % Eosinophils (%) (Auto) 6.2 0.0-7.0 % Basophils (%) (Auto) 0.7 0.0-2.0 % Neutrophils # (Auto) 8.4 1.6-8.6 10 ^3/uL Lymphocytes # (Auto) 2.4 0.4-5.4 10 ^3/uL Monocytes # (Auto) 0.8 0-1.3 10 ^3/uL Eosinophils # (Auto) 0.8 0-0.8 10 ^3/uL Basophils # (Auto) 0.1 0-0.2 10 ^3/uL Nucleated Red Blood Cells 0.0 % Prothrombin Time 45.5 H 9.3-11.8 sec Prothrombin Time INR 5.04 *H 0.9-1.15 Sodium Level 136 136-145 mmol/L Potassium Level 4.5 3.5-5.1 mmol/L Chloride Level 104 98-107 mmol/L Carbon Dioxide Level 28 20-31 mmol/L Anion Gap 4 L 5-15 Blood Urea Nitrogen 20 9-23 mg/dL Creatinine 0.75 0.550-1.02 mg/dL Glomerular Filtration Rate Calc 90 >90 mL/min BUN/Creatinine Ratio 26.7 H 10.0-20.0 Serum Glucose 88 74-106 mg/dL Calcium Level 8.8 8.7-10.4 mg/dL POC Glucose 112 H 70-106 mg/dl [place] [id number] Ph: [phone] DIAGNOSTIC IMAGING Diagnostic Imaging Report : [id number] Signed PATIENT: NEREIDA MO ACCT: [id number] UNIT: [id number] : 1960 LOC: ER ROOM / BED: / AGE / SEX: 64 / F ADM STATUS: REG ER SERVICE 1850 ORDERING PHYSICIAN: AAMIR RODRIGUEZ MD PROCEDURE(s): HWOCT - HEAD WITHOUT CONTRAST REASON: Head injury on warfarin ORDER NUMBER(s): [id number], ACCESSION NUMBER(s): [id number] EXAM: CT HEAD WITHOUT CONTRAST INDICATION: Head injury on warfarin TECHNIQUE: CT of the head without intravenous contrast. Radiation Dose Information: CT Dose: CTDI volume is 51.07 mGy. Dose-length product is 818.84 mGy*cm The dose indicators for CT are the volume Computed Tomography (CT) Dose Index (CTDIvol) and the Dose Length Product (DLP), and are measured in units of mGy and mGy-cm, respectively. These indicators are not patient dose, but values generated from the CT scanner acquisition factors. The report includes radiation exposure data for exposures received during this examination. COMPARISON: None FINDINGS: There is no evidence of acute intracranial hemorrhage, extra-axial collection, mass effect, midline shift, herniation or hydrocephalus. The ventricles, sulci and cisterns are age appropriate. The denson-white differentiation is intact. Patchy periventricular and subcortical white matter hypoattenuation is nonspecific but may be related to small vessel ischemic disease. The visualized paranasal sinuses and mastoid air cells are clear. Soft tissue swelling of the right temporal area. IMPRESSION: 1. No acute intracranial abnormality. 2. No displaced bony fracture. 3. No acute intracranial hemorrhage. 4. Soft tissue swelling over the right temporal region ATED BY: ROBERTO FULLER Jr., DO DICTATED DATE/TIME: 06/03/251922 SIGNED BY: ROBERTO FULLER Jr., SIGNED DATE/TIME: 06/03/251922 CC: Time of 1ST Reevaluation: 19:10 Reevaluation 1ST: Unchanged Patient Education/Counseling: Other (NEED FOR ADMISSION) Family Education/Counseling: Other (NEED FOR ADMISSION) SEPSIS Sepsis Screen Date sepsis recognized/suspect: Jun 03, 2025 Time Sepsis recognized/suspect: 1821 Recent Procedure: No On Antibiotic Therapy: No Respiratory Rate >20: No Heart Rate >90: No Temp<36 C (96.8 F) or >38.3 C: No SBP <90 or MAP <65 mmHG: No New Acute Mental Status Change: No Is the patient on CPAP, BIPAP,: No Physician Orders Head Without Contrast (06/03/25 18:50) Vital Signs Date Time Temp Pulse Resp B/P (MAP) Pulse Ox O2 Delivery O2 Flow Rate FiO2 06/03/25 21:46 64 20 100 Room Air 06/03/25 21:46 98.2 64 20 109/65 (80) 96 98.2 06/03/25 19:47 68 06/03/25 19:06 68 06/03/25 18:39 98.2 77 17 116/74 (88) 98 98.2 Laboratory Tests Test 06/03/25 18:58 White Blood Count 12.4 10^3/uL (4.4-10.8) H Departure 1 Departure Time of Disposition: 20:08 Impression: Primary Impression: Supratherapeutic INR Additional Impression: Head injury Disposition: ADMITTED INPATIENT Condition: Stable Comments 64-year-old female with a head injury 3 days ago. Patient is on warfarin. INR supratherapeutic. CT head negative for acute intracranial hemorrhage or other acute process. Patient admitted to hospitalist service for further treatment, evaluation and monitoring. Extensive evaluation was performed in attempt to identify or rule out: (See differential diagnosis section) The following tests were ordered, and results were reviewed by me and discussed with patient: (See diagnostic results section) The following test were independently interpreted by me: N/A I reviewed and agreed with the following test results read by other providers: CT of the head without contrast I reviewed the following notes from the pt's past medical encounters: July 03, 2024 and September 29, 2024 encounters for foreign body in ear and shortness of breath Additional information was gathered from interviewing the following independent historians: Patient's daughter at bedside Discussion of management or test interpretation with external physician/other qualified health patient care assistant: N/A Addressed an acute or chronic illness that poses a threat to life or bodily function: Supratherapeutic INR Decision regarding hospitalization or escalation of hospital level of care: Risk and benefits of admission for further treatment of patient's condition was considered. Due to patient's current clinical condition, high risk of decline and poor outcome if discharged and need for further inpatient management and monitoring, patient will be admitted to the hospital. Drug therapy requiring intensive monitoring for toxicity: N/A Parenteral controlled substances: N/A Decision regarding elective major surgery with identified patient or procedure risk factors: N/A Decision regarding emergency major surgery: N/A Decision not to resuscitate or to de-escalate care because of poor prognosis: N/A Diagnosis or treatment significantly limited by social determinants of health: N/A Critical Care Note Critical Care Time?: No Stability Stability form required: No Heart Score Heart Score: Heart Score Response (Comments) Value History N/A 0 EKG N/A 0 Age N/A 0 Risk Factors N/A 0 Troponin N/A 0 Total 0 I personally scribed for AAMIR RODRIGUEZ MD ([email or web address]) on 06/03/25 at 19:47. Electronically submitted by Stanford [email or web address]). AAMIR RODRIGUEZ MD Jun 03, 2025 19:47
[2025-06-03 19:57] LABS: Hematocrit 37.0 % (36.0-46.0); Hemoglobin 12.4 g/dL (12.2-16.2); Mean Corpuscular Hemoglobin 29.8 pg (28.0-32.0); Mean Corpuscular Volume 88.8 fL (80.0-100.0); Nucleated Red Blood Cells % 0.0 %
[2025-06-03 20:10] LABS: Chloride 104 mmol/L (98-107); Potassium 4.5 mmol/L (3.5-5.1); Sodium 136 mmol/L (136-145)
[2025-06-03 20:11] LABS: Anion Gap 4 (5-15); Calcium 8.8 mg/dL (8.7-10.4); Carbon Dioxide 28 mmol/L (20-31)
[2025-06-03 20:16] LABS: BUN/Creatinine Ratio 26.7 (10.0-20.0); Blood Urea Nitrogen 20 mg/dL (9-23); Glucose 88 mg/dL (74-106)
[2025-06-03] MEDS ORDERED: NITROGLYCERIN 0.4 MG SL TAB SL PRN (22:45)
[2025-06-03] MEDS ORDERED: MORPHINE SULFATE INJ 2 MG/ml SYRG IV PRN (22:45)
--- NOTE | 2025-06-03 22:45 | DVHHP2 ---
History of Present Illness History of Present Illness This is a 64-year-old female with past medical history of CVA, HTN, aortic valve replacement-4 years ago in [facility] currently on warfarin, cholecystectomy, and marijuana dependency came to ED with the complaint of injury right side of the frontal area with hoarse hinge 3 days ago and patient losses her consciousness and stood up herself without helping others and notice minimum amount of bleeding from right frontal region. Patient also noticed feeling dizzy, nausea, fatigue, headache that time but denies any focal weakness, involuntary loss of bowel or bladder control, nausea, vomiting. Patient currently on warfarin for her aortic valve replacement. On admission, right frontal area swelling associated with right upper eyelid and mild lower eyelid bruise noted. Patient currently ambulating and denies any fever, chest pain, SOB, abdominal pain, nausea. Patient Cardiology Dr. Israel Saenz Recent history of dental surgery 2 weeks ago and currently on amoxicillin antibiotic. Past Medical History: CVA, HTN, acidic aortic valve replacement-4 year ago in [facility] currently on warfarin, cholecystectomy, and marijuana dependency Past Surgical History prosthetic aortic valve replacement 4 years ago in [facility] Family History: None Past Social History/personal Hx: Lives with a daughter. Former smoker stopped six months ago. Marijuana use, denies ETOH PCP: [facility] Review of Systems Constitutional: Yes: Other (Small swelling noted on right frontal area) Eyes: Pain, Other (Right Upper and lower eyelid bruise noted) ENT: No: Ear pain, Ear discharge, Nose pain, Nose discharge, Nose congestion, Mouth pain, Mouth swelling, Throat pain, Throat swelling, Other Respiratory: No: Cough, Dry, Shortness of breath, SOB with excertion, Wheezing, Hemoptysis, Pleuritic Pain, Sputum, Wheezing, Other Cardiovascular: No: Chest Pain, Palpitations, Orthopnea, Paroxysmal Noc. Dyspnea, Edema, Lt Headedness, Other Gastrointestinal: No: Nausea, Vomiting, Abdominal Pain, Diarrhea, Constipation, Melena, Hematochezia, Other Genitourinary: No Dysuria, No Frequency, No Incontinence, No Hematuria, No Retention, No Other Musculoskeletal: No: other, neck pain, shoulder pain, arm pain, back pain, hand pain, leg pain, foot pain Skin: No: Rash, Lesions, Jaundice, Bruising, Other Allergies: Coded Allergies: No Known Drug Allergy (Verified Allergy, Unknown, 02/01/24) Medications Current Medications Medications Dose Ordered Sig/[place] Route Start Time Stop Time Status Last Admin Dose Admin Nitroglycerin 0.4 mg Q5MINP PRN SL 06/03/25 22:45 UNV Morphine Sulfate 2 mg Q30M PRN IV 06/03/25 22:45 UNV Exam Vital Signs Vital Signs Date Time Temp Pulse Resp B/P (MAP) Pulse Ox O2 Delivery O2 Flow Rate FiO2 06/03/25 21:46 64 20 100 Room Air 06/03/25 21:46 98.2 109/65 (80) 98.2 General Appearance: Alert, Oriented X3, Cooperative, Other (Small swelling noted on right frontal area) HEENT: Atraumatic, PERRLA, EOMI, Other (Duong noted upper eyelid and lower eyelid on right eye) Respiratory: Clear to auscultation, Normal air movement, Other (Scar alyson present on mid sternal area) Cardiovascular: Regular rate, Normal S1, Normal S2, No murmurs Abdominal: Normal bowel sounds, Soft, No tenderness, No hepatospenomegaly Extremities: No clubbing, No edema, Normal pulses Skin: No rashes, No breakdown Neuro: Normal gait, Normal speech, Strength at 5/5 X4 ext Labs/Xrays Labs Test 06/03/25 18:58 06/03/25 18:38 Range/Units White Blood Count 12.4 H 4.4-10.8 10^3/uL Red Blood Count 4.17 4.0-5.20 10^6/uL Hemoglobin 12.4 12.2-16.2 g/dL Hematocrit 37.0 36.0-46.0 % Mean Corpuscular Volume 88.8 80.0-100.0 fL Mean Corpuscular Hemoglobin 29.8 28.0-32.0 pg Mean Corpuscular Hemoglobin Concent 33.6 32.0-36.0 g/dL Red Cell Distribution Width 16.1 H 11.8-14.3 % Platelet Count 471 H 140-450 10^3/uL Mean Platelet Volume 7.3 6.9-10.8 fL Neutrophils (%) (Auto) 67.3 37.0-80.0 % Lymphocytes (%) (Auto) 19.0 10.0-50.0 % Monocytes (%) (Auto) 6.8 0.0-12.0 % Eosinophils (%) (Auto) 6.2 0.0-7.0 % Basophils (%) (Auto) 0.7 0.0-2.0 % Neutrophils # (Auto) 8.4 1.6-8.6 10 ^3/uL Lymphocytes # (Auto) 2.4 0.4-5.4 10 ^3/uL Monocytes # (Auto) 0.8 0-1.3 10 ^3/uL Eosinophils # (Auto) 0.8 0-0.8 10 ^3/uL Basophils # (Auto) 0.1 0-0.2 10 ^3/uL Nucleated Red Blood Cells 0.0 % Prothrombin Time 45.5 H 9.3-11.8 sec Prothrombin Time INR 5.04 *H 0.9-1.15 Sodium Level 136 136-145 mmol/L Potassium Level 4.5 3.5-5.1 mmol/L Chloride Level 104 98-107 mmol/L Carbon Dioxide Level 28 20-31 mmol/L Anion Gap 4 L 5-15 Blood Urea Nitrogen 20 9-23 mg/dL Creatinine 0.75 0.550-1.02 mg/dL Glomerular Filtration Rate Calc 90 >90 mL/min BUN/Creatinine Ratio 26.7 H 10.0-20.0 Serum Glucose 88 74-106 mg/dL Calcium Level 8.8 8.7-10.4 mg/dL POC Glucose 112 H 70-106 mg/dl SEPSIS Sepsis Screen Date sepsis recognized/suspect: Jun 03, 2025 Time Sepsis recognized/suspect: 2147 Recent Procedure: No On Antibiotic Therapy: No Respiratory Rate >20: No Heart Rate >90: No Temp<36 C (96.8 F) or >38.3 C: No SBP <90 or MAP <65 mmHG: No New Acute Mental Status Change: No Is the patient on CPAP, BIPAP,: No Physician Orders Head Without Contrast (06/03/25 18:50) Admit (06/03/25 22:42) Nitroglycerin Sublingual (Ntrostat Subli (06/03/25 22:45) Morphine Sulfate Injection (06/03/25 22:45) Cardiac Diet-2gna,Lofat,Lochol (06/04/25 Breakfast) Acetaminophen Tablet (Tylenol Tablet) (06/03/25 22:45) Metoprolol Tartrate Tablet (Lopressor Ta (06/04/25 10:00) Vital Signs Date Time Temp Pulse Resp B/P (MAP) Pulse Ox O2 Delivery O2 Flow Rate FiO2 06/03/25 21:46 64 20 100 Room Air 06/03/25 21:46 98.2 64 20 109/65 (80) 96 98.2 06/03/25 19:47 68 06/03/25 19:06 68 06/03/25 18:39 98.2 77 17 116/74 (88) 98 98.2 Laboratory Tests Test 06/03/25 18:58 White Blood Count 12.4 10^3/uL (4.4-10.8) H Assessment/Plan Assessment/Plan # Head injury -History of head injury 3 days back -CT HEAD W/O contrast - No acute intracranial abnormality. No displaced bony fracture. No acute intracranial hemorrhage. Soft tissue swelling over the right temporal region. -Repeat CT scan within 24 hour if any focal weakness/neurological deficit -Monitor patient closely, neuro 6 q.6 H -Should be advised not to driving for 24 hours after discharge. -Education on concussion symptoms -Tylenol 650 mg p.o. q.6 p.r.n. #CVA with no focal weakness -Hold aspirin 81 mg p.o. for now. # ESSENTIAL HYPERTENSION -Continue metoprolol 25 mg p.o. b.i.d. -Monitor blood pressure #Aortic valve replacement-4 year ago in [facility] -Currently on warfarin, hold for now due to recent head injury -Home medicine warfarin 3 mg followed by warfarin 4 mg every alternate day -PT 45.4, INR 5.04 # obesity. BMI 28.5 -Lifestyle modification Diet: Cardiac GI prophylaxis: Famotidine 40 mg p.o. daily DVT prophylaxis: Sequential compression device Goals of care discussions, more than 27 minute spent. Full code status. Case discussed with Dr. Mustafa Plan discussed with: Patient, Other (Nurse) My Orders Orders - PARRIS MENDOZA RESIDENT Procedure Category Date Status Time Admit ADMIT 06/03/25 Transmitted 22:42 Nitroglycerin PHA 06/03/25 Logged Sublingual (Ntrostat 22:45 Morphine Sulfate PHA 06/03/25 Logged Injection 22:45 Cardiac DIET 06/04/25 Transmitted Diet-2gna,Lofat,Lochol Breakfast Acetaminophen Tablet PHA 06/03/25 Transmitted (Tylenol Tablet) 22:45 Metoprolol Tartrate PHA 06/04/25 Transmitted Tablet (Lopressor Ta 10:00 Date of Service: Jun 03, 2025 Billing Provider: CELESTE MUSTAFA MD Common Visit Codes: 33911-[id number] INP/OBS CARE (HIGH) Secondary Visit Codes: 02035-[id number] CARE PLAN 30 MINUTES PARRIS MENDOZA RESIDENT Jun 03, 2025 22:45
[2025-06-03 22:56] VITALS: PULSE 68; RESP 16; O2SAT 94
[2025-06-04] VITALS (9 sets, daily range): BP systolic 112–170; BP diastolic 33–87; PULSE 53–78; RESP 12–20; TEMP 97.8–98.2; O2SAT 92–98
[2025-06-04] MEDS: ACETAMINOPHEN 325 MG TAB PO PRN (09:38)
[2025-06-04] MEDS: METOPROLOL TARTRATE 25 MG TAB PO SCH (09:39)
--- NOTE | 2025-06-04 14:20 | DVHPNRES ---
Progress Note Date Seen: Jun 04, 2025 Resident Creating Document: TONY MOODY RESIDENT Medical Necessity Reason Pt with a Central, PICC or Fol: No Subjective Review of Systems Patient is a 64-year-old female with prior medical history of CVA 2 years ago, hypertension, aortic valve replacement 4 years ago and [place] currently on warfarin, cholecystectomy, and marijuana use who presented to the ED with chief complaint of blunt head injury 3 days prior. She states that she was working on a horse trailer when she struck her forehead and fell to the ground landing in a seated position. She states that she is unsure if she lost consciousness, but recalls sitting on the ground for a while and, " seeing stars," but was able to get up on her own. Since incident she complains of intermittent headache, with intensity of 6/10, aggravated by physical activity, and states that the day before presenting to the ED she was confused and nauseous, which prompted her daughters to bring to the ED. On evaluation, she was awake, alert and oriented with hematoma on her right temporal forehead. Initial labs show WBC 12.4 hemoglobin 12.4, hematocrit 37, platelets 471, INR 5.04, and PT 45.5.Non- contrast Head CT shows no acute intracranial abnormality, no displaced bony structure, no acute intracranial hemorrhage, and soft tissue swelling over the right temporal region. Due to risk of bleeding, warfarin and aspirin discontinued and patient admitted for continued monitoring. Surgical: Aortic Valve Replacement Social: Refers habitual marjiuana use, denies other drug use. States she was a half a pack a day smoker up until 2 months ago. Refers is limited to social occasions. 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 Patient seen at bedside. Patient states she feels well, refers pain to touch of right frontal forehead. Currently denies headache, weakness, changes in vision, changes in hearing, numbness, difficulty walking, nausea, vomiting, chest pain, and palpitation. States she has not had any formal follow-up of INR since relocating from [place] a year ago. Currently warfarin and aspirin are being held pending normalization of INR. Patient is changed to soft mechanical diet due to eats solid food secondary to recent dental surgery. We will continue monitoring for any signs of focal weakness or neurological deficits. Review of system Constitutional: Denies weight loss, fever and chills. HEENT: Refers pain to the touch of forehead and right eyelid, Denies changes in vision and hearing. Respiratory: Denies shortness of breath and cough Cardiovascular: Denies chest discomfort or palpitations GI: Denies abdominal distention, abdominal pain, diarrhea : Denies dysuria and urinary frequency. Musculoskeletal: Denies myalgias and joint pain Skin: Denies rash and pruritus. Neurological: denies dizziness headache vision or hearing problems Objective vital signs Vital Sign Date Time Temp Pulse Resp B/P (MAP) Pulse Ox O2 Delivery O2 Flow Rate FiO2 06/04/25 13:04 98.1 60 17 122/70 (87) 96 98.1 06/04/25 08:00 Room Air* 0 21 Total Intake and Output 06/03/25 06/03/25 06/04/25 15:00 23:00 07:00 Intake Total 50 ml Balance 50 ml medications Current Medications Medications Dose Ordered Sig/[place] Route Start Time Stop Time Status Last Admin Dose Admin Nitroglycerin 0.4 mg Q5MINP PRN SL 06/03/25 22:45 Morphine Sulfate 2 mg Q30M PRN IV 06/03/25 22:45 Acetaminophen 650 mg Q6HP PRN PO 06/03/25 22:45 06/04/25 09:38 650 MG Metoprolol Tartrate 25 mg BID PO 06/04/25 10:00 06/04/25 09:39 25 MG Examination General: The patient alert and oriented in person place and time. Patient following commands HEENT: Normocephalic, ecchymosis present right frontal region, ecchymosis on right eyelid, pain to palpation of right forehead and eyelid, moist mucous membrane Respiratory/pulmonary: Clear lungs bilaterally, vesicular murmurs present in almost all lung [place], no associated crackles or wheezing Cardiovascular: Normal rate, normal S1 and S2 Abdomen: Normoactive bowel sounds, Abdomen nondistended, there is no pain to palpation in any of the abdominal quadrants, no palpable masses. Extremities: there is no peripheral edema present at the lower extremities. Peripheral pulses 3+ radial right, 3+ radials soft. 3+ dorsalis pedis right. 3+ dorsalis pedis left Skin: No rashes or pruritus, presence bruising on right forehead and right eyelid Neurological: Intact cranial nerves with no focal neurologic deficits laboratory and microbiology Laboratory Tests 06/03/25 18:58 Test 06/03/25 18:58 Range/Units Serum Glucose 88 74-106 mg/dL Problem List/Assessment/Plan Problem List/Assessment/Plan Assessment and Plan: S/p Traumatic head injury, ruled out TBI -Head CT: No acute intracranial abnormality. No displaced bony fracture. No acute intracranial hemorrhage. Soft tissue swelling over the right temporal region -Acetaminophen 650 mg PO q 6 hours for pain High INR, 5.04 , rule out warfarin toxicity -Warfarin and aspirin discontinued -Will continue to monitor INR S/p aortic valve replacement Essential hypertension -Continue home medications History of CVA, with no residual weakness Marijuana use disorder -Counseled for 20 minutes on cessation of marijuana DVT prophylaxin: None due to elevated INR Case discussed with Dr. Fair. Goals of care discussed with the patient for over 20 minutes, who states she understands and agrees. Plan discussed with: Patient My Orders My Orders Orders - TONY MOODY RESIDENT Procedure Category Date Status Time Mechanical Soft Diet DIET 06/04/25 Transmitted Breakfast Date of Service: Jun 04, 2025 Billing Provider: MINGO FAIR MD Common Visit Codes: [id number] INP/OBS CARE(HIGH) TONY MOODY RESIDENT Jun 04, 2025 14:20 MINGO FAIR MD Jun 06, 2025 21:27
[2025-06-05 01:00] VITALS: BP 100/58; PULSE 66; RESP 20; TEMP 97.4; O2SAT 98
[2025-06-05 05:00] VITALS: BP 105/63; PULSE 54; RESP 20; TEMP 97.1; O2SAT 99
[2025-06-05 07:24] LABS: Hematocrit 42.3 % (36.0-46.0); Hemoglobin 14.0 g/dL (12.2-16.2); Mean Corpuscular Hemoglobin 29.8 pg (28.0-32.0); Mean Corpuscular Volume 90.1 fL (80.0-100.0); Nucleated Red Blood Cells % 0.1 %
[2025-06-05 07:34] LABS: Anion Gap 7 (5-15); Carbon Dioxide 28 mmol/L (20-31); Chloride 104 mmol/L (98-107); Potassium 4.1 mmol/L (3.5-5.1); Sodium 139 mmol/L (136-145)
[2025-06-05 07:35] LABS: Calcium 9.7 mg/dL (8.7-10.4)
[2025-06-05 07:36] LABS: INR 3.81 (0.9-1.15); Prothrombin Time 35.4 sec (9.3-11.8)
[2025-06-05 07:40] LABS: BUN/Creatinine Ratio 14.0 (10.0-20.0); Blood Urea Nitrogen 12 mg/dL (9-23)
[2025-06-05 07:41] LABS: Glucose 120 mg/dL (74-106)
[2025-06-05 08:00] VITALS: PULSE 60; RESP 18; O2SAT 99
[2025-06-05 09:00] VITALS: BP 110/67; PULSE 62; RESP 18; TEMP 97.7; O2SAT 96
--- NOTE | 2025-06-05 10:37 | DVHDSRES ---
Discharge Summary Date of Admission Resident Creating Document: TONY MOODY RESIDENT Jun 03, 2025 at 22:42 Date of Discharge: Jun 05, 2025 Admitting Diagnosis Head injury Labs/Diagnostic Data: Laboratory Results Test 06/05/25 05:53 06/03/25 18:38 White Blood Count 9.5 10^3/uL (4.4-10.8) Red Blood Count 4.69 10^6/uL (4.0-5.20) Hemoglobin 14.0 g/dL (12.2-16.2) Hematocrit 42.3 % (36.0-46.0) Mean Corpuscular Volume 90.1 fL (80.0-100.0) Mean Corpuscular Hemoglobin 29.8 pg (28.0-32.0) Mean Corpuscular Hemoglobin Concent 33.0 g/dL (32.0-36.0) Red Cell Distribution Width 15.8 % (11.8-14.3) Platelet Count 450 10^3/uL (140-450) Mean Platelet Volume 7.3 fL (6.9-10.8) Neutrophils (%) (Auto) 65.9 % (37.0-80.0) Lymphocytes (%) (Auto) 21.8 % (10.0-50.0) Monocytes (%) (Auto) 5.9 % (0.0-12.0) Eosinophils (%) (Auto) 5.8 % (0.0-7.0) Basophils (%) (Auto) 0.6 % (0.0-2.0) Neutrophils # (Auto) 6.2 10 ^3/uL (1.6-8.6) Lymphocytes # (Auto) 2.1 10 ^3/uL (0.4-5.4) Monocytes # (Auto) 0.6 10 ^3/uL (0-1.3) Eosinophils # (Auto) 0.6 10 ^3/uL (0-0.8) Basophils # (Auto) 0.1 10 ^3/uL (0-0.2) Nucleated Red Blood Cells 0.1 % Prothrombin Time 35.4 sec (9.3-11.8) Prothrombin Time INR 3.81 (0.9-1.15) Sodium Level 139 mmol/L (136-145) Potassium Level 4.1 mmol/L (3.5-5.1) Chloride Level 104 mmol/L (98-107) Carbon Dioxide Level 28 mmol/L (20-31) Anion Gap 7 (5-15) Blood Urea Nitrogen 12 mg/dL (9-23) Creatinine 0.86 mg/dL (0.550-1.02) Glomerular Filtration Rate Calc 76 mL/min (>90) BUN/Creatinine Ratio 14.0 (10.0-20.0) Serum Glucose 120 mg/dL (74-106) Calcium Level 9.7 mg/dL (8.7-10.4) POC Glucose 112 mg/dl (70-106) Other Laboratory Tests 06/05/25 05:53 Brief Hx & Hospital Course: Patient is a 64-year-old female with prior medical history of CVA 2 years ago, hypertension, aortic valve replacement 4 years ago and [place] currently on warfarin, cholecystectomy, and marijuana use who presented to the ED with chief complaint of blunt head injury 3 days prior. She states that she was working on a horse trailer when she struck her forehead and fell to the ground landing in a seated position. She states that she is unsure if she lost consciousness, but recalls sitting on the ground for a while and, " seeing stars," but was able to get up on her own. Since incident she complains of intermittent headache, with intensity of 6/10, aggravated by physical activity, and states that the day before presenting to the ED she was confused and nauseous, which prompted her daughters to bring to the ED. On evaluation, she was awake, alert and oriented with hematoma on her right temporal forehead. Initial labs show WBC 12.4 hemoglobin 12.4, hematocrit 37, platelets 471, INR 5.04, and PT 45.5. Non- contrast Head CT shows no acute intracranial abnormality, no displaced bony structure, no acute intracranial hemorrhage, and soft tissue swelling over the right temporal region. Due to risk of bleeding, warfarin and aspirin discontinued and patient admitted for continued monitoring. Home medications were continued and was given for pain. On admission, patient was oriented in person, place, and time referring only pain to the right side of her forehead. Physical exam was significant for presence of hematoma on right temporal forehead and ecchymosis of the right eyelid, both were tender to palpation, there were no signs of focal neurologic deficits. Today's labs significant for INR 3.81, WBC 9.5, hemoglobin 14, hematocrit 42.3, platelets 450, sodium 139, and potassium 4.1. Vitals have been stable. On evaluation, patient states that she would like to leave given her daughter needs help with her children. She is oriented, denies nausea, vomiting, headaches, weakness, changes in vision and hearing, or other symptoms. Patient was told INR is still elevated and is still at elevated risk of bleeding. We explained that the goal INR before restarting her [place] is 2.5 and that it is best to monitored during that time. Additionally, we would still like to monitor her for any signs of intracranial bleeding secondary to previous head injury. The risks of leaving against medical advice were thoroughly explained, patient states she understands the risks and would still like to leave. Patient stated that she has the equipment at home to monitor her INR and will continue to do so. She states she has her medication at home and will resume them once her INR is at 2.5. Additionally, she is contacting her collateral clerk for further outpatient monitoring. Patient signed AMA paperwork and subsequently left. Operations or Procedures EXAM: CT HEAD WITHOUT CONTRAST INDICATION: Head injury on warfarin TECHNIQUE: CT of the head without intravenous contrast. Radiation Dose Information: CT Dose: CTDI volume is 51.07 mGy. Dose-length product is 818.84 mGy*cm The dose indicators for CT are the volume Computed Tomography (CT) Dose Index (CTDIvol) and the Dose Length Product (DLP), and are measured in units of mGy and mGy-cm, respectively. These indicators are not patient dose, but values generated from the CT scanner acquisition factors. The report includes radiation exposure data for exposures received during this examination. COMPARISON: None FINDINGS: There is no evidence of acute intracranial hemorrhage, extra-axial collection, mass effect, midline shift, herniation or hydrocephalus. The ventricles, sulci and cisterns are age appropriate. The denson-white differentiation is intact. Patchy periventricular and subcortical white matter hypoattenuation is nonspecific but may be related to small vessel ischemic disease. The visualized paranasal sinuses and mastoid air cells are clear. Soft tissue swelling of the right temporal area. IMPRESSION: 1. No acute intracranial abnormality. 2. No displaced bony fracture. 3. No acute intracranial hemorrhage. 4. Soft tissue swelling over the right temporal region Condition at Discharge: Undetermined Final Diagnosis/Problems List S/p Traumatic head injury, ruled out TBI High INR, 5.04 , ruled out warfarin toxicity S/p aortic valve replacement Essential hypertension History of CVA, with no residual weakness Marijuana use disorder Discharge Disposition: AMA Discharge Instruct/Medications Scheduled Aspirin (Aspir-81), 1 TAB PO DAILY, (Reported) Metoprolol Succinate (Metoprolol Succinate Er), 1 TAB PO DAILY, (Reported) Warfarin Sodium (Warfarin Sodium), 1 TAB PO DAILY, (Reported) Scheduled PRN Acetaminophen (Acetaminophen), 500 MG [place] Q6HP PRN for PAIN SCALE 1 THRU 6, (Reported) Discharge Statement: "Patient was advised to return to the ER or call 911 if any headaches, dizziness, shortness of breath, chest pain, abdominal pain, bleeding, fevers, or worsening of medical condition. Patient was counseled about treatment plan, medications, possible side effects, patientverbalized understanding. All questions were answered to the best of my ability. This discharge took greater then 30 minutes in planning, reviewing documentation, counseling the patient, and discussing with other team members." ASSESSMENT ASSESSMENT Assessment Date of Service: Jun 05, 2025 Billing Provider: MINGO GONZALEZ MD Common Visit Codes: 47563-DLK/OBS DISCH DAY >30min TONY MOODY RESIDENT Jun 05, 2025 10:37 MINGO GONZALEZ MD Jun 06, 2025 21:39
--- NOTE | 2025-06-06 14:21 | ECG ---
[facility] Test Date: 2025-06-03 Test Time: 18:37:58 Pat Name: NEREIDA MO Department: er Room: 0280 A Gender: F Fisher Eel: layton : 1960 Requested By: AAMIR RODRIGUEZ Order Number: [id number] Reading MD: Ed Charles Measurements Intervals [place] Rate: 68 P: 68 WV: 131 QRS: -25 QRSD: 99 T: 56 QT: 422 QTc: 449 Interpretive Statements Sinus rhythm Probable left atrial enlargement Borderline left axis deviation RSR' in V1 or V2, right VCD or RVH Baseline wander in lead(s) V5 Electronically Signed On 06-11-2025 21:44:04 PDT by Ed Charles Please click the below link to view image of tracing.
== END 2025-06-05 10:30 | disposition left against medical advice (07) | DRG 914 ==
LOC: ER 18:22 → OVERFLOW 22:42 → WEST WING 23:58
PROVIDERS: ADMIT Student in an Organized Health Care Education/Training Program; ATTEND Student in an Organized Health Care Education/Training Program
DX: S09.8XXA Other specified injuries of head, initial encounter (principal); I10 Essential (primary) hypertension; E66.9 Obesity, unspecified; S05.11XA Contusion of eyeball and orbital tissues, right eye, initial encounter; Z53.29 Procedure and treatment not carried out because of patient's decision for other reasons; Z90.49 Acquired absence of other specified parts of digestive tract; Z79.82 Long term (current) use of aspirin; Z79.899 Other long term (current) drug therapy; Z79.01 Long term (current) use of anticoagulants; Z86.73 Personal history of transient ischemic attack (TIA), and cerebral infarction without residual deficits; Z87.828 Personal history of other (healed) physical injury and trauma; Z90.710 Acquired absence of both cervix and uterus; Z95.2 Presence of prosthetic heart valve; Z98.51 Tubal ligation status; Z68.28 Body mass index [BMI] 28.0-28.9, adult; W18.39XA Other fall on same level, initial encounter; Y93.89 Activity, other specified; Y92.89 Other specified places as the place of occurrence of the external cause; Y99.8 Other external cause status
CPT/HCPCS: 36415; 70450; 80048; 82962; 85025; 85610; 93005; G0378